=== PATIENT | female | born 1985 | race Caucasian/White ===

== ENCOUNTER 2022-02-04 17:14 | Emergency (ER) | payer MEDICAID ==
--- NOTE | 2022-02-04 17:20 | ERPHSYRPT ---
- History of Present Illness Time Seen by Provider: 02/04/22 17:20 Source: patient Exam Limitations: no limitations Physician History: This is a 36-year-old obese white female who was walking her dog yesterday when it pulled her and she twisted her right foot. The patient has pain in the medial aspect of her right foot. Method of Injury: twisted Occurred: yesterday Quality: constant, aching Severity of Pain-Max: mild Severity of Pain-Current: mild Lower Extremities Pain: foot: right Modifying Factors: Improves With: movement Associated Symptoms: other (Can) Allergies/Adverse Reactions: Iodinated Contrast Media Allergy (Verified 02/04/22 17:37) Home Medications: Albuterol 2.5 mg/3 ml Neb [Proventil 2.5 mg/3 ml Neb] 2.5 mg IH UD 02/04/22 [History] Albuterol Sulfate [Albuterol Sulfate Hfa] 2 inh PO DAILY 02/04/22 [History] Clonidine HCl 0.1 mg [Clonidine 0.1 mg Tablet] 0.1 mg PO BID 02/04/22 [History] Ibuprofen [Ibu] 800 mg PO TID PRN 02/04/22 [History] Loratadine 10 mg [Claritin 10 mg] 10 mg PO DAILY 02/04/22 [History] hydrOXYzine HCL [Hydroxyzine HCl] 25 mg PO DAILY 02/04/22 [History] Travel Risk - International Travel Have you traveled outside of the country in past 3 weeks: No - Coronavirus Screening Are you exhibiting any of the following symptoms?: No Close contact with a COVID-19 positive Pt in past 14-21 Days: No - Review of Systems Constitutional: No Symptoms Eyes: No Symptoms Ears, Nose, & Throat: No Symptoms Respiratory: No Symptoms Cardiac: No Symptoms Abdominal/Gastrointestinal: No Symptoms Genitourinary Symptoms: No Symptoms Musculoskeletal: Injury (Right foot medial aspect) Skin: No Symptoms Neurological: No Symptoms Psychological: No Symptoms Endocrine: No Symptoms Hematologic/Lymphatic: No Symptoms Immunological/Allergic: No Symptoms All Other Systems: Reviewed and Negative - Past Medical History Pertinent Past Medical History: Yes - Past Surgical History Past Surgical History: Yes - Nursing Vital Signs Nursing Vital Signs: Initial Vital Signs Temperature 97.5 F 02/04/22 17:21 Pulse Rate 75 02/04/22 17:21 Blood Pressure 131/92 02/04/22 17:21 O2 Sat by Pulse Oximetry 98 02/04/22 17:21 Pain Scale Pain Intensity 9 - Physical Exam General Appearance: no apparent distress, alert, anxiety, obese Eyes, Ears, Nose, Throat Exam: normal ENT inspection, moist mucous membranes Neck Exam: normal inspection, non-tender, supple, full range of motion Cardiovascular/Respiratory Exam: chest non-tender, no respiratory distress Gastrointestinal/Abdominal Exam: non-tender Back Exam: normal inspection, normal range of motion, No CVA tenderness, No vertebral tenderness Hips Exam: bilateral: non-tender, normal inspection, normal range of motion, no evidence of injury Legs Exam: bilateral leg: non-tender, normal inspection, normal range of motion, no evidence of injury Knees Exam: bilateral knee: non-tender, normal inspection, normal range of motion, no evidence of injury Ankle Exam: bilateral ankle: non-tender, normal inspection, normal range of motion, no evidence of injury Foot Exam: right foot: soft tissue tenderness (Medial aspect), left foot: non- tender, normal inspection, normal range of motion, no evidence of injury Neuro/Tendon Exam: normal sensation, normal motor functions, normal tendon functions, responds to pain, no evidence tendon injury Mental Status Exam: alert, oriented x 3 Skin Exam: normal color, warm, dry SpO2 Interpretation: normal O2 Delivery: Room Air - Course Nursing assessment & vital signs reviewed: Yes Ordered Tests: Active Orders 24 hr Category Date Time Status FOOT (MINIMUM 3 VIEWS) Stat Exams 02/04/22 18:06 Taken - Progress Progress: pain not gone completely, re-examined Progress Note: 02/04/22 19:06 X-ray of right foot shows no acute fracture or dislocation. Counseled pt/family regarding: diagnosis, need for follow-up, rad results - Departure Departure Disposition: Home Clinical Impression: Right foot pain Condition: Stable Critical Care Time: No Referrals: Provider,Unknown [Primary Care Provider] - Follow up/PCP as directed Additional Instructions: Ice bath to area 3 times a day for the next 48 hours. Use Tylenol ibuprofen for pain control. Follow-up with your primary care physician for persistent symptoms. Other options include Dr. Donovan (podiatry) and [facility] orthopedic clinic Sunday through Sunday 9:52 AM. You do not need to have an appointment. It is a walk-in clinic.
[2022-02-04 17:35] VITALS: BP 131/92; PULSE 75; O2SAT 98
--- NOTE | 2022-02-04 22:12 | XRAY ---
Indication: Pain following injury. Comparison: None 3 nonweightbearing views right foot demonstrates tiny talonavicular accessory ossicle. No other bony, articular, or soft tissue abnormalities.
== END 2022-02-04 19:30 | disposition home or self-care (01) ==
LOC: ED 17:14
DX: M79.671 Pain in right foot (principal); X50.0XXA Overexertion from strenuous movement or load, initial encounter; Y93.K1 Activity, walking an animal; Z79.899 Other long term (current) drug therapy
CPT/HCPCS: 73630; 99282

== ENCOUNTER 2022-05-24 13:50 | Emergency (ER) | payer OTHER ==
[2022-05-24 14:40] LABS: Absolute Neutrophil Ct (ANC) 5.54 x10^3/uL (1.4-6.9); Basophil (Absolute #) 0.03 x10^3/uL (0-0.4); Eosinophil % 1.8 % (0.00-5.0); Eosinophil (Absolute #) 0.15 x10^3/uL (0-0.5); Hematocrit 37.9 % (35-47); Hemoglobin 11.8 g/dL (12.0-16.0); Lymphocyte (Absolute #) 2.05 x10^3/uL (1.0-4.6); Lymphocytes % 24.5 % (24.0-44.0); Mean Cell Volume 86.9 fL (78-100); Mean Corpuscular Hemoglobin 27.1 pg (26-32); Mean Corpuscular Hgb Concent. 31.1 g/dL (32-36); Mean Platelet Volume 9.3 fL (7.5-11.0); Monocyte (Absolute #) 0.55 x10^3/uL (0.0-1.3); Monocytes % 6.6 % (0.0-12.0); Neutrophil % 66.2 % (36.0-66.0); Platelet Count 368 x10^3/uL (150-450); Red Blood Count 4.36 x10^6/uL (4.1-5.4); Red Cell Distribution Width 13.2 % (11.5-14.0); White Blood Count 8.4 x10^3/uL (4.0-10.5)
[2022-05-24 14:54] LABS: ALBUMIN 4.1 g/dL (3.5-5.0); ALKALINE PHOSPHATASE 75 U/L (38-126); ANION GAP 9.2 MEQ/L (5-15); BLOOD UREA NITROGEN 5 mg/dL (7-17); CHLORIDE 101 mmol/L (98-107); Calcium 9.1 mg/dL (8.4-10.2); Carbon Dioxide 30 mmol/L (22-30); Creatinine 1 0.65 mg/dL (0.52-1.04); EST GLOMERULAR FILTRATION RATE > 60.0 ML/MIN; Glucose 108 mg/dL (74-106); Potassium 4.1 mmol/L (3.5-5.1); SGOT/AST 21 U/L (14-36); SGPT/ALT 19 U/L (0-35); SODIUM 137 mmol/L (137-145); Total Protein 7.7 g/dL (6.3-8.2)
[2022-05-24 15:06] LABS: Mucus SLIGHT /HPF (NEGATIVE); WBC 0-2 /HPF (0-5)
[2022-05-24 15:09] LABS: Appearance CLEAR (CLEAR); Bilirubin NEGATIVE (NEGATIVE); Dipstick done @ ? MAIN LAB; Glucose NEGATIVE (NEGATIVE); Ketones NEGATIVE (NEGATIVE); Nitrite NEGATIVE (NEGATIVE); Protein,Urine Dip NEGATIVE (Negative); RBC NEGATIVE Ery/ul (0-5); Specific Gravity 1.025 (1.005-1.025); Urobilinogen 0.2 mg/dL (0-1)
[2022-05-24 15:12] LABS: Urine Cultured Indicated? NO
--- NOTE | 2022-05-24 15:24 | ERPHSYRPT ---
- History of Present Illness Time Seen by Provider: 05/24/22 15:24 Source: patient Exam Limitations: no limitations Patient Subjective Stated Complaint: pt here for blurred vision for 3 days, no injury not eyes, she states she was sent to hospital 3 days ago by doc and sta ben she did not get seen because wait was too long Triage Nursing Assessment: pt alert, walked in, resp easy, skin w/d/p. face mask in place, no tearing or redness noted Physician History: Patient is a 37-year-old female presents to our ED for evaluation of change in vision. Patient states she experienced acute change in vision 3 days ago. Patient notified her primary care doctor who advised her to follow-up on emergency department. Patient went to an emergency department but felt the wait was too long so went home. Here she is 3 days later requesting to be seen further her acute change in vision. No associated headache. No nausea or v omiting. No trauma. No associated numbness tingling or weakness. Symptoms are mild to moderate in intensity. No specific worsening or improving factors. Symptoms are constant. Patient denies a history of the same. She does not wear contacts or eyeglasses. Patient currently has an appointment scheduled with an director of channel marketing. Appointment is scheduled for tomorrow. Patient voices no other complaints or concerns at this time. Portions of this note were created with voice recognition technology. There may be grammatical, spelling, punctuation or sound alike errors Timing/Duration: day(s) (3 days ago) Severity: moderate Modifying Factors: Improves With: nothing Associated Symptoms: denies symptoms Allergies/Adverse Reactions: codeine Allergy (Verified 05/24/22 13:54) Iodinated Contrast Media Allergy (Verified 02/04/22 17:37) Home Medications: Albuterol 2.5 mg/3 ml Neb [Proventil 2.5 mg/3 ml Neb] 2.5 mg IH UD 02/04 [History] Albuterol Sulfate [Albuterol Sulfate Hfa] 2 inh PO DAILY 02/04/22 [History] Clonidine HCl 0.1 mg [Clonidine 0.1 mg Tablet] 0.1 mg PO BID 02/04/22 [History] Ibuprofen [Ibu] 800 mg PO TID PRN 02/04/22 [History] Loratadine 10 mg [Claritin 10 mg] 10 mg PO DAILY 02/04/22 [History] Hx Tetanus, Diphtheria Vaccination/Date Given: No Hx Influenza Vaccination/Date Given: No Hx Pneumococcal Vaccination/Date Given: No Immunizations Up to Date: Yes Travel Risk - International Travel Have you traveled outside of the country in past 3 weeks: No - Coronavirus Screening Are you exhibiting any of the following symptoms?: No - Vaccine Status Have you recieved a Covid-19 vaccination: No - Review of Systems Constitutional: No Symptoms, No Fever, No Chills Eyes: No Symptoms Ears, Nose, & Throat: No Symptoms Respiratory: No Symptoms, No Cough, No Dyspnea Cardiac: No Symptoms, No Chest Pain, No Edema, No Syncope Abdominal/Gastrointestinal: No Symptoms, No Abdominal Pain, No Nausea, No Vomiting, No Diarrhea Genitourinary Symptoms: No Symptoms, No Dysuria Musculoskeletal: No Symptoms, No Back Pain, No Neck Pain Skin: No Symptoms, No Rash Neurological: No Symptoms, No Dizziness, No Focal Weakness, No Sensory Changes Psychological: No Symptoms Endocrine: No Symptoms Hematologic/Lymphatic: No Symptoms Immunological/Allergic: No Symptoms All Other Systems: Reviewed and Negative - Past Medical History Pertinent Past Medical History: Yes Cardiac History: Hypertension Endocrine Medical History: Diabetes Type II GI Medical History: GERD History: Other Other Medical History: MRSA, hospitalized due to kidney infection and was sedated for 3 days - Past Surgical History Past Surgical History: Yes Female Surgical History: Section, Other Other Surgical History: 2 lbs of MRSA removed from right breast - Social History Smoking Status: Never smoker Exposure to second hand smoke: No Drug Use: none Patient Lives Alone: No - Female History Hx Last Menstrual Period: nov Hx Now: No - Nursing Vital Signs Nursing Vital Signs: Initial Vital Signs Temperature 98.3 F 05/24/22 13:55 Pulse Rate 82 05/24/22 13:55 Respiratory Rate 18 05/24/22 13:55 Blood Pressure 128/89 05/24/22 13:55 O2 Sat by Pulse Oximetry 99 05/24/22 13:55 Pain Scale Pain Intensity 0 - Physical Exam General Appearance: no apparent distress, alert Eye Exam: PERRL/EOMI, eyes nml inspection Ears, Nose, Throat Exam: normal ENT inspection, TMs normal, pharynx normal, moist mucous membranes Neck Exam: normal inspection, non-tender, supple, full range of motion Respiratory Exam: normal breath sounds, lungs clear, airway intact, No respiratory distress Cardiovascular Exam: regular rate/rhythm, normal heart sounds, normal peripheral pulses Gastrointestinal/Abdomen Exam: soft, normal bowel sounds, No tenderness, No mass Back Exam: normal inspection, normal range of motion, No CVA tenderness, No vertebral tenderness Extremity Exam: normal inspection, normal range of motion, pelvis stable Neurologic Exam: alert, oriented x 3, cooperative, normal mood/affect, nml cerebellar function, nml station & gait, sensation nml, No motor deficits Skin Exam: normal color, warm, dry, No rash Lymphatic Exam: No adenopathy SpO2 Interpretation: normal SpO2: 97 O2 Delivery: Room Air - Course Nursing assessment & vital signs reviewed: Yes EKG Interpreted by Me: RATE (79), Sinus Rhythm, NORMAL AXIS, NORMAL INTERVALS - CT Exams Head CT Interpretation: Tele-radiologist Report (No acute intracranial pathology) Ordered Tests: Active Orders 24 hr Category Date Time Status Loom Fixer Supervisor STAT Care 05/24/22 14:19 Active EKG-ER Only STAT Care 05/24/22 14:19 Active IV Insertion STAT Care 05/24/22 14:19 Active Pulse Oximetry (ED) STAT Care 05/24/22 14:19 Active HEAD WITHOUT CONTRAST [CT] Stat Exams 05/24/22 14:20 Completed CBC W DIFF Stat Lab 05/24/22 14:32 Completed CMP Stat Lab 05/24/22 14:32 Completed HCG,QUALITATIVE URINE Stat Lab 05/24/22 14:59 Completed TROPONIN Q4H Lab 05/24/22 14:32 Completed UA W/RFX CULTURE Stat Lab 05/24/22 15:00 Completed Lab/Rad Data: Laboratory Result Diagrams 05/24/22 14:32 05/24/22 14:32 Laboratory Results 05/24/22 05/24/22 05/24/22 Range/Units 15:00 14:59 14:32 WBC (4.0-10.5) x10^3/uL RBC (4.1-5.4) x10^6/uL Hgb (12.0-16.0) g/dL Hct (35-47) % MCV (78-100) fL MCH (26-32) pg MCHC (32-36) g/dL RDW (11.5-14.0) % Plt Count (150-450) x10^3/uL MPV (7.5-11.0) fL Gran % (36.0-66.0) % Immature Gran % (Auto) (0.00-0.4) % Nucleat RBC Rel Count (0.00-0.1) % Eos # (Auto) (0-0.5) x10^3/uL Immature Gran # (Auto) (0.00-0.03) x10^3u/L Absolute Lymphs (auto) (1.0-4.6) x10^3/uL Absolute Monos (auto) (0.0-1.3) x10^3/uL Absolute Nucleated RBC (0.00-0.01) x10^3u/L Lymphocytes % (24.0-44.0) % Monocytes % (0.0-12.0) % Eosinophils % (0.00-5.0) % Basophils % (0.0-0.4) % Absolute Granulocytes (1.4-6.9) x10^3/uL Basophils # (0-0.4) x10^3/uL Sodium (137-145) mmol/L Potassium (3.5-5.1) mmol/L Chloride (98-107) mmol/L Carbon Dioxide (22-30) mmol/L Anion Gap (5-15) MEQ/L BUN (7-17) mg/dL Creatinine (0.52-1.04) mg/dL Estimated GFR ML/MIN Glucose (74-106) mg/dL Calcium (8.4-10.2) mg/dL Total Bilirubin (0.2-1.3) mg/dL AST (14-36) U/L ALT (0-35) U/L Alkaline Phosphatase (38-126) U/L Troponin I < 0.012 (0.000-0.034) ng/mL Serum Total Protein (6.3-8.2) g/dL Albumin (3.5-5.0) g/dL Urinalys Dipstick Clnc MAIN LAB Urine Color YELLOW (YELLOW) Urine Appearance CLEAR (CLEAR) Urine pH 7.0 (5-6) Ur Specific [place] 1.025 (1.005-1.025) POC Urine Protein Conf NEGATIVE (Negative) Urine Ketones NEGATIVE (NEGATIVE) Urine Nitrite NEGATIVE (NEGATIVE) Urine Bilirubin NEGATIVE (NEGATIVE) Urine Urobilinogen 0.2 (0-1) mg/dL Urine Leukocytes NEGATIVE (NEGATIVE) Urine WBC (Auto) 0-2 (0-5) /HPF Urine RBC (Auto) NONE (0-2) /HPF U Epithel Cells (Auto) NONE (FEW) /HPF Urine Bacteria (Auto) NONE (NEGATIVE) /HPF Urine RBC NEGATIVE (0-5) Maverick/ul Urine Mucus (Auto) SLIGHT A (NEGATIVE) /HPF Ur Culture Indicated? NO Urine Glucose NEGATIVE (NEGATIVE) mg/dL Urine HCG, Qual NEGATIVE (Negative) 05/24/22 05/24/22 Range/Units 14:32 14:32 WBC 8.4 (4.0-10.5) x10^3/uL RBC 4.36 (4.1-5.4) x10^6/uL Hgb 11.8 L (12.0-16.0) g/dL Hct 37.9 (35-47) % MCV 86.9 (78-100) fL MCH 27.1 (26-32) pg MCHC 31.1 L (32-36) g/dL RDW 13.2 (11.5-14.0) % Plt Count 368 (150-450) x10^3/uL MPV 9.3 (7.5-11.0) fL Gran % 66.2 H (36.0-66.0) % Immature Gran % (Auto) 0.5 H (0.00-0.4) % Nucleat RBC Rel Count 0.0 (0.00-0.1) % Eos # (Auto) 0.15 (0-0.5) x10^3/uL Immature Gran # (Auto) 0.04 H (0.00-0.03) x10^3u/L Absolute Lymphs (auto) 2.05 (1.0-4.6) x10^3/uL Absolute Monos (auto) 0.55 (0.0-1.3) x10^3/uL Absolute Nucleated RBC 0.00 (0.00-0.01) x10^3u/L Lymphocytes % 24.5 (24.0-44.0) % Monocytes % 6.6 (0.0-12.0) % Eosinophils % 1.8 (0.00-5.0) % Basophils % 0.4 (0.0-0.4) % Absolute Granulocytes 5.54 (1.4-6.9) x10^3/uL Basophils # 0.03 (0-0.4) x10^3/uL Sodium 137 (137-145) mmol/L Potassium 4.1 (3.5-5.1) mmol/L Chloride 101 (98-107) mmol/L Carbon Dioxide 30 (22-30) mmol/L Anion Gap 9.2 (5-15) MEQ/L BUN 5 L (7-17) mg/dL Creatinine 0.65 (0.52-1.04) mg/dL Estimated GFR > 60.0 ML/MIN Glucose 108 H (74-106) mg/dL Calcium 9.1 (8.4-10.2) mg/dL Total Bilirubin 0.40 (0.2-1.3) mg/dL AST 21 (14-36) U/L ALT 19 (0-35) U/L Alkaline Phosphatase 75 (38-126) U/L Troponin I (0.000-0.034) ng/mL Serum Total Protein 7.7 (6.3-8.2) g/dL Albumin 4.1 (3.5-5.0) g/dL Urinalys Dipstick Clnc Urine Color (YELLOW) Urine Appearance (CLEAR) Urine pH (5-6) Ur Specific [place] (1.005-1.025) POC Urine Protein Conf (Negative) Urine Ketones (NEGATIVE) Urine Nitrite (NEGATIVE) Urine Bilirubin (NEGATIVE) Urine Urobilinogen (0-1) mg/dL Urine Leukocytes (NEGATIVE) Urine WBC (Auto) (0-5) /HPF Urine RBC (Auto) (0-2) /HPF U Epithel Cells (Auto) (FEW) /HPF Urine Bacteria (Auto) (NEGATIVE) /HPF Urine RBC (0-5) Maverick/ul Urine Mucus (Auto) (NEGATIVE) /HPF Ur Culture Indicated? Urine Glucose (NEGATIVE) mg/dL Urine HCG, Qual (Negative) - Progress Progress: improved Progress Note: Patient reassessed. She is comfortable. Work-up negative. CT head negative. We intended to obtain a CT angio of the head neck however were unable to do so due to patient's contrast dye allergy. Laboratory work-up negative. Patient's vision will be assessed by her director of channel marketing tomorrow. I spoke to Dr. Martinez regarding the case. He agrees that it is appropriate for patient to be discharged home since the onset of patient's symptoms was 3 days ago. Patient to follow-up with her director of channel marketing as planned. If patient has a primary eye problem the director of channel marketing may manage. However there is no clear explanation for her change in vision patient will require an outpatient MRI. Dr. Martinez states that he will order the MRI and follow-up on the results as long as patient contact his office for a follow-up. I discussed with patient the plan of care. Patient agrees to call Dr. Martinez's office in the morning and schedule a follow- up appointment within a week. Dr. Martinez is aware of our patient and will be anticipating her visit. Patient will follow up with her director of channel marketing tomorrow for further evaluation and treatment. She voices no other complaints or concerns at this time. Will discharge home. Patient is to take a 81mg aspirin daily until her follow-up with Dr. Martinez Portions of this note were created with voice recognition technology. There may be grammatical, spelling, punctuation or sound alike errors 05/24/22 18:46 05/24/22 18:48 05/24/22 18:[address] Apurva Will see patient in: office Counseled pt/family regarding: lab results, diagnosis, need for follow-up, rad results - Departure Departure Disposition: Home Clinical Impression: Blurred vision, bilateral, Change in visual acuity right eye Condition: Stable Critical Care Time: No Referrals: DOCTOR,NO FAMILY [Primary Care Provider] - Follow up/PCP as directed AGNES MARTINEZ MD [ACTIVE STAFF] - Follow up/PCP as directed Additional Instructions: Please follow-up with your director of channel marketing tomorrow. If a clear explanation is not obtained regarding her change in vision you will require an MRI of your brain. Dr. Martinez will follow up with you as an outpatient. Please call Dr. Martinez's office in the morning to schedule a follow-up appointment within [address] Martinez will reevaluate you and determine whether or not you will require an outpatient MRI. Discharge/Care Plan SUKI WINTER was seen on 05/24/22 in the Emergency Room. The patient was counseled regarding Diagnosis,Lab results, Imaging studies, need for follow up and when to return to the Emergency Room. Prescriptions given: Discharge Note I have spoken with the patient and/or caregivers. I have explained the patient's condition, diagnosis and treatment plan based on the information available to me at this time. I have answered the patient's and/or caregiver's questions and addressed any concerns. The patient and/or caregivers have as good understanding of the patient's diagnosis, condition and treatment plan as can be expected at this point. The vital signs have been stable. The patient's condition is stable and appropriate for discharge from the emergency department. The patient will pursue further outpatient evaluation with the primary care physician or other designated or consulting physician as outlined in the discharge instructions. The patient and/or caregivers are agreeable to this plan of care and follow-up instructions have been explained in detail. The patient a nd/or caregivers have received these instruction. The patient/and or caregivers are aware that any significant change in condition or worsening of symptoms should prompt an immediate return to this or the closest emergency department or call 911.
--- NOTE | 2022-05-24 16:29 | XRAY ---
Indication: Right eye vision changes 3 days. Multiple contiguous axial images obtained through the head without contrast. Comparison: None Normal appearing brain parenchyma, ventricles, and bony calvarium. Visualized paranasal sinuses and mastoid air cells are clear. Impression: Normal CT head without contrast exam.
[2022-05-24 18:04] VITALS: BP 128/89
[2022-05-24] MEDS ORDERED: BABY ASPIRIN 81 MG CHEW ONE (18:48)
[2022-05-24] MEDS ORDERED: BABY ASPIRIN 81 MG CHEW PO ONE (18:50)
[2022-05-24 18:52] VITALS: PULSE 83; O2SAT 97
[2022-05-24] MEDS ORDERED: Ecotrin 325 MG PO SCH (22:00)
== END 2022-05-24 18:56 | disposition home or self-care (01) ==
LOC: ED 13:50
DX: H53.8 Other visual disturbances (principal); H53.131 Sudden visual loss, right eye; E11.9 Type 2 diabetes mellitus without complications; I10 Essential (primary) hypertension; Z79.899 Other long term (current) drug therapy; Z28.310 Unvaccinated for COVID-19
CPT/HCPCS: 36415; 70450; 80053; 81015; 81025; 84484; 85025; 93005; 93041; 94760; 99284; A9270-GY

== ENCOUNTER 2023-01-21 18:27 | Emergency (ER) | payer OTHER ==
[2023-01-21] MEDS ORDERED: BENADRYL 50 MG/ML IM ONE (18:39)
[2023-01-21] MEDS ORDERED: BENADRYL 50 MG/ML IV ONE (18:39)
[2023-01-21] MEDS ORDERED: TORAdol 30 mg Injection IM ONE (18:39)
--- NOTE | 2023-01-21 18:45 | ERPHSYRPT ---
- History of Present Illness Time Seen by Provider: 01/21/23 18:41 Historian: patient Exam Limitations: no limitations Physician History: Patient is 37-year-old female with significant history of recently diagnosed gallstones for which patient is supposed to undergo surgery but patient states that [place] so she canceled the surgery but since yesterday she started having abdominal pain. She lives in [place] but she went to the emergency room at [facility] but there was a prior overweight so she came to [facility] for further management. Patient states that she only has some neck pain and abdominal pain and she just needs something for pain relief. Surgery was scheduled but patient did cancel it patient surgeon is in [place]. Timing/Duration: today Abdominal Pain Onset Location: RUQ Pain Radiation: no radiation Modifying Factors: Improves With: nothing Associated Symptoms: denies symptoms Allergies/Adverse Reactions: codeine Allergy (Verified 01/21/23 18:45) Iodinated Contrast Media Allergy (Verified 01/21/23 18:45) Home Medications: Albuterol 2.5 mg/3 ml Neb [Proventil 2.5 mg/3 ml Neb] 2.5 mg IH UD 02/04/22 [History] Albuterol Sulfate [Albuterol Sulfate Hfa] 2 inh PO DAILY 02/04/22 [History] Clonidine HCl 0.1 mg [Clonidine 0.1 mg Tablet] 0.1 mg PO BID 02/04/22 [History] Ibuprofen [Ibu] 800 mg PO TID PRN 02/04/22 [History] Loratadine 10 mg [Claritin 10 mg] 10 mg PO DAILY 02/04/22 [History] Hx Tetanus, Diphtheria Vaccination/Date Given: No Hx Influenza Vaccination/Date Given: No Hx Pneumococcal Vaccination/Date Given: No Travel Risk - Vaccine Status Have you recieved a Covid-19 vaccination: No - Review of Systems Constitutional: No Fever, No Chills Eyes: No Symptoms Ears, Nose, & Throat: No Symptoms Respiratory: No Cough, No Dyspnea Cardiac: No Chest Pain, No Edema, No Syncope Abdominal/Gastrointestinal: Abdominal Pain, No Nausea, No Vomiting, No Diarrhea Genitourinary Symptoms: No Dysuria Musculoskeletal: No Back Pain, No Neck Pain Skin: No Rash Neurological: No Dizziness, No Focal Weakness, No Sensory Changes Psychological: No Symptoms Endocrine: No Symptoms All Other Systems: Reviewed and Negative - Past Medical History Pertinent Past Medical History: Yes Cardiac History: Hypertension Endocrine Medical History: Diabetes Type II GI Medical History: GERD History: Other Other Medical History: MRSA, hospitalized due to kidney infection and was sedated for 3 days - Past Surgical History Past Surgical History: Yes Female Surgical History: Section, Other Other Surgical History: 2 lbs of MRSA removed from right breast - Social History Smoking Status: Never smoker Exposure to second hand smoke: No Drug Use: none Patient Lives Alone: No - Nursing Vital Signs Nursing Vital Signs: Initial Vital Signs Temperature 97.7 F 01/21/23 18:34 Pulse Rate 65 01/21/23 18:34 Respiratory Rate 16 01/21/23 18:34 Blood Pressure 130/78 01/21/23 18:34 O2 Sat by Pulse Oximetry 96 01/21/23 18:34 Pain Scale Pain Intensity 8 - Physical Exam General Appearance: no apparent distress, alert Eye Exam: PERRL/EOMI, eyes nml inspection Ears, Nose, Throat Exam: normal ENT inspection, pharynx normal, moist mucous membranes Neck Exam: normal inspection, non-tender, supple, full range of motion Respiratory Exam: normal breath sounds, lungs clear, No respiratory distress Cardiovascular Exam: regular rate/rhythm, normal heart sounds Gastrointestinal/Abdomen Exam: soft, No tenderness, No mass Back Exam: normal inspection, normal range of motion, No CVA tenderness, No vertebral tenderness Extremity Exam: normal inspection, normal range of motion, pelvis stable Neurologic Exam: alert, oriented x 3, cooperative, normal mood/affect, nml cerebellar function, sensation nml, No motor deficits Skin Exam: normal color, warm, dry - Course Nursing assessment & vital signs reviewed: Yes Ordered Tests: Medication Summary Discontinued Medications Generic Name Dose Route Start Last Admin Trade Name Freq PRN Reason Stop Dose Admin Diphenhydramine HCl 25 mg 01/21/23 18:39 01/21/23 18:48 Diphenhydramine Hcl 50 Mg/Ml Vial IV 01/21/23 18:40 Not Given STAT ONE Diphenhydramine HCl 25 mg 01/21/23 18:39 01/21/23 18:52 Diphenhydramine Hcl 50 Mg/Ml Vial IM 08/20/23 18:40 25 mg STAT ONE Administration Diphenhydramine HCl Confirm 01/21/23 18:50 Diphenhydramine Hcl 50 Mg/Ml Vial Administered 01/21/23 18:51 Dose 50 mg .ROUTE .STK-MED ONE Ketorolac Tromethamine 60 mg 01/21/23 18:39 01/21/23 18:52 Ketorolac Tromethamine 30 Mg/Ml Inj IM 01/21/23 18:40 60 mg STAT ONE Administration Ketorolac Tromethamine Confirm 01/21/23 18:50 Ketorolac Tromethamine 30 Mg/Ml Inj Administered 01/21/23 18:51 Dose 60 mg .ROUTE .STK-MED ONE - Progress Progress: improved Counseled pt/family regarding: need for follow-up - Departure Departure Disposition: Home Clinical Impression: Gall bladder stones Abdominal pain Qualifiers: Abdominal location: right upper quadrant Qualified Code(s): R10.11 - Right upper quadrant pain Condition: Stable Critical Care Time: No Referrals: DOCTOR,NO FAMILY [Primary Care Provider] - Follow up/PCP as directed Instructions: Abdominal pain, Gallstones (DC) Additional Instructions: You have a gallstone problem which is giving you abdominal pain please talk to your surgeon and schedule surgery as soon as possible. We are just managing and treating your pain in our emergency room as well as we already know the diagnosis for your pain and that is why we are not doing any blood test or any scanning so please follow-up with your surgeon tomorrow and get your surgery scheduled. Discharge/Care Plan SUKI WINTER was seen on 01/21/23 in the Emergency Room. The patient was counseled regarding Diagnosis,Lab results, Imaging studies, need for follow up and when to return to the Emergency Room. Prescriptions given: Discharge Note I have spoken with the patient and/or caregivers. I have explained the patient's condition, diagnosis and treatment plan based on the information available to me at this time. I have answered the patient's and/or caregiver's questions and addressed any concerns. The patient and/or caregivers have as good understanding of the patient's diagnosis, condition and treatment plan as can be expected at this point. The vital signs have been stable. The patient's condition is stable and appropriate for discharge from the emergency department. The patient will pursue further outpatient evaluation with the primary care physician or other designated or consulting physician as outlined in the discharge instructions. The patient and/or caregivers are agreeable to this plan of care and follow-up instructions have been explained in detail. The patient and/or caregivers have received these instruction. The patient/and or caregivers are aware that any significant change in condition or worsening of symptoms should prompt an immediate return to this or the closest emergency department or call 911. Prescriptions: Dicyclomine HCl 20 mg [Bentyl 20 mg] 20 mg PO TID #15 tablet
[2023-01-21 18:46] VITALS: BP 130/78; PULSE 65; RESP 16; TEMP 97.7; O2SAT 96
[2023-01-21] MEDS ORDERED: BENADRYL 50 MG/ML ONE (18:50)
[2023-01-21] MEDS ORDERED: TORAdol 30 mg Injection ONE (18:50)
== END 2023-01-21 19:31 | disposition home or self-care (01) ==
LOC: ED 18:27
DX: K80.20 Calculus of gallbladder without cholecystitis without obstruction (principal); R10.11 Right upper quadrant pain; M54.2 Cervicalgia; I10 Essential (primary) hypertension; E11.9 Type 2 diabetes mellitus without complications; Z79.899 Other long term (current) drug therapy; Z28.310 Unvaccinated for COVID-19
CPT/HCPCS: 96372; 99283; J1200; J1885